=== PATIENT | male | born 1940 | race Caucasian/White ===

== ENCOUNTER 2019-12-08 14:56 | Emergency (ER) | payer MEDICARE ==
[~2019-12-08] VITALS: Ht 177.8 cm; Wt 87.1 kg
[~2019-12-08 14:56] MED LIST: ASPIRIN325 MG PO; ASPIRIN81 MG; CARVEDILOL3.125 MG PO; FENOFIBRATE145 MG PO; LASIX20 MG PO; PRAVASTATIN SOD40 MG PO; RANTIDINE PO; STOOL SOFTENER100 MG PO
--- NOTE | 2019-12-08 16:19 | Diagnostic Imaging Report ---
EXAMINATION: Head CT HISTORY: Right facial weakness cause mild possible acute stroke COMPARISON: None. TECHNIQUE: Helical axial images of the head were obtained. Reformatted coronal and sagittal images from the axial data. Dose modulation, iterative reconstruction, and/or weight based adjustment of the mA/kV was utilized to reduce the radiation dose to as low as reasonably achievable. Image quality: Motion/streaking artifact limits the evaluation of the skull base and posterior cranial fossa. FINDINGS: Parenchyma: 1. Few scattered mildly confluent periventricular pulmonary hypodensities, most likely nonspecific chronic microvascular ischemic changes. Questionable subtle hypodensity in the left middle frontal lobe. 2. Age-indeterminate likely chronic tiny lacunar infarcts in the right anterior lentiform nucleus and left striatocapsular region. 3. No mass or hemorrhage. No CT evidence of acute territorial vascular insult. Extra-axial spaces:No abnormal density. No extra-axial fluid collections Brain volume: Normal for age. Ventricles: No hydrocephalus or displacement. Arteries: No density suggestive of thrombus. Dural sinuses: No abnormal density. Foramen magnum: No mass, Chiari malformation, or basilar invagination. Sella: No obvious mass. Paranasal/mastoid sinuses: Imaged portions unremarkable. Skull/Scalp: No lytic or blastic lesions. No fractures. Incidental findings: Right nasopharyngeal mass is partially visualized, the lesion is inseparable from the skull base and there may be infiltration,, the mass is also infiltrate in the right parapharyngeal space, right prevertebral muscles and possibly the passenger conductor space. A brain MRI is recommended for further evaluation/staging. Associated opacification of the right mastoid air cells/middle ear, likely from obstruction of the eustachian tube at the nasopharyngeal level. IMPRESSION: 1. No acute intracranial hemorrhage or cortical infarct, if clinical concern remains for acute infarction considered brain MRI for further evaluation. 2. Mild chronic microvascular ischemic changes as above. 3. 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 Signed by: Dr. Danielle Gant M.D. on 12/08/2019 4:15 PM
--- NOTE | 2019-12-08 17:24 | Emergency Department Note ---
History of Present Illnes History of Present Illness Chief Complaint: General Medicine Complaints History of Present Illness This is a 79 year old male PATIENT IN FROM HOME WITH COMPLAINTS OF RIGHT EARACHE X 2 WEEKS; NOW WITH RIGHT SIDED FACIAL PARALYSIS; LEFT SIDED FACIAL DROOP. PATIENT APPEARS IN NO DISTRESS, RESP EVEN AND NONLABORED. Historian: Patient Arrival Mode: Car Cell Biology Scientist Required: No Onset (how long ago): week(s) (2) Location: RIGHT FACE Quality: DROOP Radiation: Reports non-radiation Severity: moderate Onset quality: gradual Timing of current episode: constant Progression: unchanged Chronicity: new Context: Denies recent illness Relieving factors: none Exacerbating factors: none Associated symptoms: Reports denies other symptoms Treatments prior to arrival: none Past Medical/Family History Physician Review I have reviewed the patient's past medical and family history. Any updates have been documented here. Past Medical History Recent Fever: No Clinical Suspicion of Infectio: No New/Unexplained Change in Ment: No Past Medical History: Hyperlipedemia Other Medical History: high cholesterol ALLERGIES Past Surgical History: None Social History Smoking Cessation: Former smoker Counseling Performed: Yes Alcohol Use: None Any Illegal Drug Use: No TB Exposure/Symptoms: No Physically hurt or threatened: No Family History Family history of heart diseas: No Other Last Tetanus: none Any Pre-Existing Lines (PICC,: No Review of Systems Review of Systems Constitutional: Reports no symptoms EENTM: Reports no symptoms Cardiovascular: Reports no symptoms Respiratory: Reports no symptoms Gastrointestinal: Reports no symptoms Genitourinary: Reports no symptoms Musculoskeletal: Reports no symptoms Integumentary: Reports no symptoms Neurological: Reports as per HPI Psychological: Reports no symptoms Endocrine: Reports no symptoms Hematological/Lymphatic: Reports no symptoms Physical Exam Related Data Allergies: Coded Allergies: No Known Allergies (Unverified , 02/04/17) Triage Vital Signs Vital Signs Date Time Temp Pulse Resp B/P (MAP) Pulse Ox O2 Delivery O2 Flow Rate FiO2 12/08/19 15:17 97.6 72 18 112/72 100 Room Air Vital signs reviewed: Yes Physical Exam CONSTITUTIONAL HENT EYES NECK PULMONARY CARDIOVASCULAR GASTROINTESTINAL GENITOURINARY SKIN MUSCULOSKELETAL NEUROLOGICAL Neurological: Present alert, Present oriented x 3, Present cranial nerve deficit (RIGHT FACIAL DROOP AFFECTING EYEBROW); Absent sensory deficit, Absent weakness (ALL EXT'S 5/5 STR) PSYCHOLOGICAL Results Imaging Imaging results reviewed: Yes Impressions EXAMINATION: Head CT HISTORY: Right facial weakness cause mild possible acute stroke COMPARISON: None. TECHNIQUE: Helical axial images of the head were obtained. Reformatted coronal and sagittal images from the axial data. Dose modulation, iterative reconstruction, and/or weight based adjustment of the mA/kV was utilized to reduce the radiation dose to as low as reasonably achievable. Image quality: Motion/streaking artifact limits the evaluation of the skull base and posterior cranial fossa. FINDINGS: Parenchyma: 1. Few scattered mildly confluent periventricular pulmonary hypodensities, most likely nonspecific chronic microvascular ischemic changes. Questionable subtle hypodensity in the left middle frontal lobe. 2. Age-indeterminate likely chronic tiny lacunar infarcts in the right anterior lentiform nucleus and left striatocapsular region. 3. No mass or hemorrhage. No CT evidence of acute territorial vascular insult. Extra-axial spaces:No abnormal density. No extra-axial fluid collections Brain volume: Normal for age. Ventricles: No hydrocephalus or displacement. Arteries: No density suggestive of thrombus. Dural sinuses: No abnormal density. Foramen magnum: No mass, Chiari malformation, or basilar invagination. Sella: No obvious mass. Paranasal/mastoid sinuses: Imaged portions unremarkable. Skull/Scalp: No lytic or blastic lesions. No fractures. Incidental findings: Right nasopharyngeal mass is partially visualized, the lesion is inseparable from the skull base and there may be infiltration,, the mass is also infiltrate in the right parapharyngeal space, right prevertebral muscles and possibly the milk processing worker space. A brain MRI is recommended for further evaluation/staging. Associated opacification of the right mastoid air cells/middle ear, likely from obstruction of the eustachian tube at the nasopharyngeal level. IMPRESSION: 1. No acute intracranial hemorrhage or cortical infarct, if clinical concern remains for acute infarction considered brain MRI for further evaluation. 2. Mild chronic microvascular ischemic changes as above. 3. 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 Signed by: Dr. Danielle Gant M.D. on 12/08/2019 4:15 PM Assessment & Plan Medical Decision Making MDM NORWOOD'S PALSY BY EXAM - CHECK CT DUE TO AGE AND HX R/O BLEED/CVA Reassessment Reassessment [facility], F/U PCP AND NEURO TUESDAY Assessment & Plan Final Impression: (1) Norwood's palsy Depart Disposition: HOME, SELF-CARE Last Vital Signs Date Time Temp Pulse Resp B/P (MAP) Pulse Ox O2 Delivery O2 Flow Rate FiO2 12/08/19 15:17 97.6 72 18 112/72 100 Room Air Home Meds Reported Medications Docusate Sodium (STOOL SOFTENER) 100 Mg Capsule, 1 TAB PO DAILY 02/04/17 Fenofibrate Nanocrystallized (FENOFIBRATE) 145 Mg Tablet, 72.5 MG PO DAILY 02/04/17 Carvedilol (CARVEDILOL) 3.125 Mg Tablet, 6.5 MG PO BID, #60 TAB 02/04/17 Pravastatin Sodium (PRAVASTATIN SODIUM) 40 Mg Tablet, 40 MG PO DAILY 02/04/17 [Rantidine] No Conflict Check, 150 MG PO DAILY 02/04/17 Furosemide (LASIX) 20 Mg Tablet, 20 MG PO BID, #30 TAB 02/04/17 Aspirin (ASPIRIN) 325 Mg Tablet, 325 MG PO DAILY, #30 TAB 02/04/17 Aspirin (ASPIRIN) 81 Mg Tab.chew 02/04/17 ARANZA SILVA MD Dec 08, 2019 17:23
--- NOTE | 2019-12-08 17:24 | NUR ---
PATIENTS DAUGHTER STATING THAT SHE WANTED TO BE DISCHARGED RIGHT THIS INSTANT; WHEN ASKED TO WAIT A FEW MOMENTS, DAUGHTER TOOK PATIENT AND LEFT AT THIS TIME. DR SILVA NOTIFIED
== END 2019-12-08 17:24 | disposition home or self-care (01) ==
LOC: ER 15:25
DX: G51.0 Bell's palsy (principal); H92.01 Otalgia, right ear; E78.5 Hyperlipidemia, unspecified; E78.00 Pure hypercholesterolemia, unspecified
CPT/HCPCS: 70450; 99282